=== PATIENT | female | born 1965 | race African-American/Black ===

== ENCOUNTER → 2016-09-04 | Outpatient (CLI) | payer MEDICARE, OTHER ==
[~2016-09-04] MED LIST: ASPIRIN 325MG325 MG PO; BYDUREON2 MG SQ; CELEXA40 MG PO; CLARITIN10 M2 PO; DESYREL 50 MG T50 MG PO; ELAVIL 10 MG TA10 MG PO; GLUCOTROL5 MG PO; K-DUR TAB 10 M10 MEQ PO; LASIX40 MG PO; LEVEMIR100 UNIT/1 SQ; LISINOPRIL40 MG PO; LOPRESSOR100 MG PO; NEURONTIN600 MG PO; NEURONTIN800 MG PO; NORCO 7.5-3251 EACH PO; NORVASC 5 MG TAB5 MG PO; NOVOLOG 10100 UNITS1 SQ; ROBAXIN500 MG PO; SYNTHROID50 MCG PO; VITAMIN B-121000 MC3 PO; ZANTAC150 MG PO; ZOCOR40 MG PO; ZYRTEC10 MG PO
== END ==
LOC: KOH-I 15:00
DX: G95.9 Disease of spinal cord, unspecified (principal); M48.02 Spinal stenosis, cervical region; M25.78 Osteophyte, vertebrae; Z98.1 Arthrodesis status
CPT/HCPCS: 72125

== ENCOUNTER → 2021-01-02 | Outpatient (CLI) | payer MEDICARE, OTHER ==
[~2021-01-02] MED LIST changes: +ALBUTEROL2.5 MG/3 M INH; +ALLOPURINOL100 MG PO; +AMITRIPTYLINE H10 MG PO; +AMLODIPINE BESY10 MG PO; +ANORO ELLIPTA1 EACH INH; +ASPIRIN EC81 MG PO; +ATORVASTATIN CA20 MG PO; +BRILINTA 90 MG90 MG PO; +BUPROPION HCL100 M1 PO; +BYDUREON BCISE; +BYDUREON P2 MG/0.65 SQ; +DULOXETINE HCL30 MG PO; +DULOXETINE HCL60 MG PO; +FLONASE 0.05% N16 GM; +FUROSEMIDE20 MG PO; +GABAPENTIN600 MG PO; +HYDROCHLOROTHIA25 MG PO; +ISOSORBIDE PO; +LEVOCETIRIZINE D5 MG PO; +LEVOTHYROXINE50 MCG PO; +LORTAB 5-325 M1 EACH PO; +METFORMIN HCL500 MG PO; +METOPROLOL SUC100 MG PO; +MIRALAX17 GM PO; +NITROSTAT0.4 MG SL; +NOVOLOG100 UNIT/1 SQ; +QUETIAPINE FUMA25 MG PO; +SIMVASTATIN20 MG PO; +TIZANIDINE HCL2 MG PO; +TOPROL XL100 MG PO; +TRAZODONE HCL50 MG PO; +VENLAFAXINE H37.5 M1 PO; +VENTOLIN HFA 66.7 GM INH; +[UNRECOGNIZED DRUG - OTHER]
== END ==
LOC: KOH-I 13:00
DX: Z12.2 Encounter for screening for malignant neoplasm of respiratory organs (principal); R91.1 Solitary pulmonary nodule; F17.210 Nicotine dependence, cigarettes, uncomplicated
CPT/HCPCS: 71271

== ENCOUNTER → 2021-01-10 | Day surgery (SDC) | payer MEDICARE, OTHER | END | disposition home or self-care (01) | LOC: OR 06:15 | DX: Z12.11 Encounter for screening for malignant neoplasm of colon (principal); I50.9 Heart failure, unspecified; J44.9 Chronic obstructive pulmonary disease, unspecified; I11.0 Hypertensive heart disease with heart failure; E03.9 Hypothyroidism, unspecified; K52.9 Noninfective gastroenteritis and colitis, unspecified; F17.210 Nicotine dependence, cigarettes, uncomplicated; F32.9 Major depressive disorder, single episode, unspecified; E11.42 Type 2 diabetes mellitus with diabetic polyneuropathy; E78.2 Mixed hyperlipidemia; Z95.1 Presence of aortocoronary bypass graft; Z88.0 Allergy status to penicillin; Z20.822 Contact with and (suspected) exposure to COVID-19 | CPT/HCPCS: 82962; J2704; J7030; U0002 ==

== ENCOUNTER 2021-06-02 04:43 | Inpatient (IN) | payer MEDICARE, OTHER ==
[~2021-06-02] VITALS: Ht 172.7 cm; Wt 135.3 kg
[~2021-06-02 04:43] MED LIST changes: -BYDUREON P2 MG/0.65 SQ; -GABAPENTIN600 MG PO; -ISOSORBIDE PO; -LORTAB 5-325 M1 EACH PO; -METFORMIN HCL500 MG PO; -NOVOLOG100 UNIT/1 SQ; -QUETIAPINE FUMA25 MG PO
[2021-06-02 05:16] LABS: HEMOGLOBIN 12.6 gm/dl (12.3-15.3); RED BLOOD COUNT 3.72 M/UL (4.00-5.10); WHITE BLOOD COUNT 19.3 K/UL (4.5-11.0)
[2021-06-02 05:44] LABS: BUN/CREATININE RATIO 15 (0-10)
[2021-06-02] MEDS ORDERED: QUETIAPINE FUMA25 MG PO (07:09)
[2021-06-02] MEDS ORDERED: ISOSORBIDE MONO30 MG PO (09:37)
[2021-06-02] MEDS ORDERED: BYDUREON BCISE PO (09:39)
[2021-06-02] MEDS ORDERED: GABAPENTIN800 MG PO (09:41)
[2021-06-02] MEDS ORDERED: HYDROCODON-ACE1 EAC2 PO (09:42)
[2021-06-02] MEDS ORDERED: METFORMIN HCL500 MG PO (09:46)
[2021-06-02] MEDS ORDERED: NOVOLOG FL100 UNIT/1 INJ ×2 (09:49→11:22)
[2021-06-02] MEDS ORDERED: ATORVASTATIN CA80 MG PO (11:18)
[2021-06-02] MEDS ORDERED: TRESIBA FL100 UNIT/1 INJ (11:25)
[2021-06-02] MEDS ORDERED: PRAZOSIN HCL2 MG PO (11:27)
[2021-06-02] MEDS ORDERED: ALLOPURINOL300 MG PO (11:30)
[2021-06-02] MEDS ORDERED: PLAVIX 75 MG TA75 MG PO (11:31)
[2021-06-02] MEDS ORDERED: CYCLOBENZAPRINE10 MG PO (11:31)
[2021-06-02] MEDS ORDERED: JARDIANCE10 MG PO (11:32)
[2021-06-03 03:14] LABS: HEMOGLOBIN 12.5 gm/dl (12.3-15.3); RED BLOOD COUNT 3.78 M/UL (4.00-5.10)
[2021-06-03 03:46] LABS: BUN/CREATININE RATIO 21 (0-10)
[2021-06-04 08:00] LABS: HEMOGLOBIN 12.4 gm/dl (12.3-15.3); RED BLOOD COUNT 3.8 M/UL (4.00-5.10); WHITE BLOOD COUNT 14.9 K/UL (4.5-11.0)
[2021-06-04 08:22] LABS: BUN/CREATININE RATIO 27 (0-10)
[2021-06-05 08:33] LABS: HEMOGLOBIN 12.9 gm/dl (12.3-15.3); RED BLOOD COUNT 3.95 M/UL (4.00-5.10); WHITE BLOOD COUNT 14.5 K/UL (4.5-11.0)
[2021-06-05 09:07] LABS: BUN/CREATININE RATIO 34 (0-10)
[2021-06-05] MEDS ORDERED: LEVOFLOXACIN750 MG PO (13:58)
--- NOTE | 2021-06-05 14:14 | NUR ---
1400: AMBULATED PATIENT IN HALLWAY WITHOUT OXYGEN, NOTED SPO2 DECREASED TO 86%. RETURNED TO ROOM AND PLACED BACK ON 2 LPM N/C. SPO2 INCREASED TO 97%.
--- NOTE | 2021-06-05 15:18 | NUR ---
1320: PATIENT AWAITING ARRIVAL OF HOME OXYGEN TO BE DELIVERED FOR DISCHARGE HOME.
== END 2021-06-05 16:35 | disposition home or self-care (01) | DRG 871 ==
LOC: ER1 04:43 → CDU 08:21 → MED SURG 4 16:32
PROVIDERS: Physician Assistant; Student in an Organized Health Care Education/Training Program; ADMIT Internal Medicine
PROC: 3E0333Z Introduction of Anti-inflammatory into Peripheral Vein, Percutaneous Approach (ICD-10-PCS; principal; 2021-06-02)
DX: A41.9 Sepsis, unspecified organism (principal); J96.01 Acute respiratory failure with hypoxia; J18.9 Pneumonia, unspecified organism; Z20.822 Contact with and (suspected) exposure to COVID-19; R65.20 Severe sepsis without septic shock; J44.0 Chronic obstructive pulmonary disease with (acute) lower respiratory infection; Z68.41 Body mass index [BMI] 40.0-44.9, adult; J44.1 Chronic obstructive pulmonary disease with (acute) exacerbation; I16.0 Hypertensive urgency; E11.9 Type 2 diabetes mellitus without complications; E66.01 Morbid (severe) obesity due to excess calories; E78.5 Hyperlipidemia, unspecified; E03.9 Hypothyroidism, unspecified; F17.210 Nicotine dependence, cigarettes, uncomplicated; I25.10 Atherosclerotic heart disease of native coronary artery without angina pectoris; Z95.1 Presence of aortocoronary bypass graft; Z79.01 Long term (current) use of anticoagulants; Z79.82 Long term (current) use of aspirin; Z95.5 Presence of coronary angioplasty implant and graft; Z90.49 Acquired absence of other specified parts of digestive tract; Z88.0 Allergy status to penicillin; Z88.8 Allergy status to other drugs, medicaments and biological substances; Z90.710 Acquired absence of both cervix and uterus; Z82.49 Family history of ischemic heart disease and other diseases of the circulatory system; Z83.3 Family history of diabetes mellitus; Z79.4 Long term (current) use of insulin
CPT/HCPCS: 36415; 36600; 71045; 80048; 80053; 82550; 82553; 82803; 82962; 83036; 83605; 83735; 83880; 84484; 85025; 85379; 87040; 93005; 94640; 94664; 94760; 96374; 99285; J0456; J0696; J1100; J1650; J1940; J2920; J3475; J7030; Q9967; U0002

== ENCOUNTER → 2021-09-04 | Outpatient (CLI) | payer MEDICARE, OTHER ==
[~2021-09-04] MED LIST changes: +ALLOPURINOL300 MG PO; +ATORVASTATIN CA80 MG PO; +BYDUREON BCISE PO; +CYCLOBENZAPRINE10 MG PO; +GABAPENTIN800 MG PO; +HYDROCODON-ACE1 EAC2 PO; +ISOSORBIDE MONO30 MG PO; +JARDIANCE10 MG PO; +LEVOFLOXACIN750 MG PO; +METFORMIN HCL500 MG PO; +NOVOLOG FL100 UNIT/1 INJ; +PLAVIX 75 MG TA75 MG PO; +PRAZOSIN HCL2 MG PO; +QUETIAPINE FUMA25 MG PO; +TRESIBA FL100 UNIT/1 INJ
== END ==
LOC: HEART 5 11:11
DX: J44.9 Chronic obstructive pulmonary disease, unspecified (principal); R94.2 Abnormal results of pulmonary function studies
CPT/HCPCS: 94060; 94729

== ENCOUNTER → 2021-09-19 | Outpatient (CLI) | payer MEDICARE, OTHER ==
[2021-09-19 08:39] LABS: HEMOGLOBIN 11.8 gm/dl (12.3-15.3); RED BLOOD COUNT 3.82 M/UL (4.00-5.10); WHITE BLOOD COUNT 11.2 K/UL (4.5-11.0)
== END ==
LOC: CT 08:00
PROVIDERS: Family Medicine
DX: R91.8 Other nonspecific abnormal finding of lung field (principal); E03.9 Hypothyroidism, unspecified; E78.2 Mixed hyperlipidemia; E53.8 Deficiency of other specified B group vitamins; I10 Essential (primary) hypertension
CPT/HCPCS: 36415; 71250; 80053; 80061; 82607; 83735; 84439; 84443; 85027

== ENCOUNTER 2021-10-03 21:04 | Emergency (ER) | payer MEDICARE, OTHER ==
[~2021-10-03 21:04] MED LIST changes: -HYDROCODON-ACE1 EAC2 PO; +HYDROCODON-ACE1 EAC4 PO; -METFORMIN HCL500 MG PO; -QUETIAPINE FUMA25 MG PO; +QUETIAPINE FUMA50 MG PO
[2021-10-05] MEDS ORDERED: METFORMIN HCL500 M2 PO (09:46)
[2021-10-05] MEDS ORDERED: HYDROCHLOROTHIA25 MG PO (10:34)
[2021-10-05] MEDS ORDERED: ANORO ELLIPTA1 EACH INH (10:37)
[2021-10-05] MEDS ORDERED: ALBUTEROL2.5 MG/3 M INH (10:38)
[2021-10-05] MEDS ORDERED: CYCLOBENZAPRINE10 MG PO (10:43)
== END 2021-10-04 00:17 | disposition left against medical advice (07) ==
LOC: ER1 21:04
DX: Z53.21 Procedure and treatment not carried out due to patient leaving prior to being seen by health care provider (principal)

== ENCOUNTER 2021-10-05 04:53 | Inpatient (IN) | payer MEDICARE, OTHER ==
[~2021-10-05] VITALS: Ht 175.3 cm; Wt 136.1 kg
[2021-10-05 06:28] LABS: RED BLOOD COUNT 4.25 M/UL (4.00-5.10); WHITE BLOOD COUNT 22.4 K/UL (4.5-11.0)
[2021-10-05 06:59] LABS: BUN/CREATININE RATIO 43 (0-10)
[2021-10-05] MEDS ORDERED: METFORMIN HCL500 M2 PO (09:46)
[2021-10-05] MEDS ORDERED: HYDROCHLOROTHIA25 MG PO (10:34)
[2021-10-05] MEDS ORDERED: ANORO ELLIPTA1 EACH INH (10:37)
[2021-10-05] MEDS ORDERED: ALBUTEROL2.5 MG/3 M INH (10:38)
[2021-10-05] MEDS ORDERED: CYCLOBENZAPRINE10 MG PO (10:43)
[2021-10-05 16:06] LABS: HEMOGLOBIN 11.5 gm/dl (12.3-15.3)
[2021-10-05 16:14] LABS: RED BLOOD COUNT 3.82 M/UL (4.00-5.10)
[2021-10-05 16:48] LABS: BUN/CREATININE RATIO 54 (0-10)
[2021-10-06 05:40] LABS: HEMOGLOBIN 11.4 gm/dl (12.3-15.3); RED BLOOD COUNT 3.75 M/UL (4.00-5.10); WHITE BLOOD COUNT 25.9 K/UL (4.5-11.0)
--- NOTE | 2021-10-06 17:10 | NUR ---
DRESSING CHANGED TO LEFT AXILI PER MD ORDER
[2021-10-07 04:20] LABS: WHITE BLOOD COUNT 35.2 K/UL (4.5-11.0)
[2021-10-07 04:21] LABS: RED BLOOD COUNT 3.34 M/UL (4.00-5.10)
[2021-10-08 05:04] LABS: HEMOGLOBIN 10.2 gm/dl (12.3-15.3); RED BLOOD COUNT 3.39 M/UL (4.00-5.10)
[2021-10-08 05:11] LABS: WHITE BLOOD COUNT 33.5 K/UL (4.5-11.0)
[2021-10-09 04:58] LABS: HEMOGLOBIN 8.9 gm/dl (12.3-15.3)
[2021-10-09 05:04] LABS: RED BLOOD COUNT 2.96 M/UL (4.00-5.10); WHITE BLOOD COUNT 33.3 K/UL (4.5-11.0)
[2021-10-10 07:45] LABS: HEMOGLOBIN 8.5 gm/dl (12.3-15.3); RED BLOOD COUNT 2.94 M/UL (4.00-5.10)
[2021-10-10 07:51] LABS: WHITE BLOOD COUNT 32.5 K/UL (4.5-11.0)
[2021-10-10 19:30] LABS: HEMOGLOBIN 7.1 gm/dl (12.3-15.3)
[2021-10-11 04:35] LABS: HEMOGLOBIN 6.5 gm/dl (12.3-15.3); RED BLOOD COUNT 2.17 M/UL (4.00-5.10); WHITE BLOOD COUNT 30.5 K/UL (4.5-11.0)
[2021-10-11 11:55] LABS: HEMOGLOBIN 7.2 gm/dl (12.3-15.3); RED BLOOD COUNT 2.3 M/UL (4.00-5.10); WHITE BLOOD COUNT 21.7 K/UL (4.5-11.0)
[2021-10-12 05:02] LABS: WHITE BLOOD COUNT 24.1 K/UL (4.5-11.0)
[2021-10-12 05:35] LABS: RED BLOOD COUNT 2.05 M/UL (4.00-5.10)
[2021-10-12 05:37] LABS: HEMOGLOBIN 6.2 gm/dl (12.3-15.3)
[2021-10-12 16:14] LABS: HEMOGLOBIN 8.2 gm/dl (12.3-15.3); RED BLOOD COUNT 2.7 M/UL (4.00-5.10)
[2021-10-13 06:36] LABS: HEMOGLOBIN 8.7 gm/dl (12.3-15.3); RED BLOOD COUNT 2.84 M/UL (4.00-5.10)
[2021-10-13 06:45] LABS: WHITE BLOOD COUNT 32.8 K/UL (4.5-11.0)
[2021-10-14 05:23] LABS: HEMOGLOBIN 8.5 gm/dl (12.3-15.3); RED BLOOD COUNT 2.78 M/UL (4.00-5.10); WHITE BLOOD COUNT 27.8 K/UL (4.5-11.0)
[2021-10-15 05:16] LABS: HEMOGLOBIN 8.7 gm/dl (12.3-15.3); RED BLOOD COUNT 2.88 M/UL (4.00-5.10); WHITE BLOOD COUNT 26.3 K/UL (4.5-11.0)
[2021-10-16 05:19] LABS: HEMOGLOBIN 8.4 gm/dl (12.3-15.3); RED BLOOD COUNT 2.76 M/UL (4.00-5.10); WHITE BLOOD COUNT 22.2 K/UL (4.5-11.0)
[2021-10-17 05:35] LABS: HEMOGLOBIN 7.7 gm/dl (12.3-15.3); RED BLOOD COUNT 2.56 M/UL (4.00-5.10)
[2021-10-18 05:35] LABS: HEMOGLOBIN 7.4 gm/dl (12.3-15.3); RED BLOOD COUNT 2.51 M/UL (4.00-5.10); WHITE BLOOD COUNT 16.4 K/UL (4.5-11.0)
--- NOTE | 2021-10-18 18:45 | NUR ---
WOUND VAC CHANGED PER DR. BROUSSARD ORDERS WITHOUT COMPLICATIONS. PATIENT TOLERATED WELL. WILL MONITOR CLOSELY.
[2021-10-19 04:04] LABS: HEMOGLOBIN 7.1 gm/dl (12.3-15.3); RED BLOOD COUNT 2.33 M/UL (4.00-5.10); WHITE BLOOD COUNT 12.8 K/UL (4.5-11.0)
[2021-10-19] MEDS ORDERED: SENNA LAX8.6 MG PO (13:56)
[2021-10-19] MEDS ORDERED: MELATONIN3 MG PO (13:56)
[2021-10-19] MEDS ORDERED: HUMALOG 10100 UNITS/ SC (13:56)
[2021-10-19] MEDS ORDERED: SANTYL OINT 3030 GM TOP (13:56)
[2021-10-19] MEDS ORDERED: LANTUS INS100 UTS/M1 SC (13:56)
[2021-10-19] MEDS ORDERED: FAMOTIDINE20 MG PO (13:56)
[2021-10-19] MEDS ORDERED: IPRAT-ALBUT 0.5-3 ML NEB (13:56)
[2021-10-19] MEDS ORDERED: CALCIUM ACETAT667 M1 PO (13:56)
[2021-10-19] MEDS ORDERED: BUDESONIDE0.25 MG/2 NEB (13:56)
[2021-10-19 19:13] LABS: HEMOGLOBIN 7.8 gm/dl (12.3-15.3)
== END 2021-10-20 01:12 | DRG 853 ==
LOC: ER1 04:53 → CCU 06:50 → CDU 06:50 → CCU 16:14
PROVIDERS: Family Medicine; Internal Medicine; Internal Medicine Critical Care Medicine; Internal Medicine Nephrology; Internal Medicine Pulmonary Disease; Nurse Practitioner Pediatrics; Surgery; ADMIT Internal Medicine
PROC: 3E03329 Introduction of Other Anti-infective into Peripheral Vein, Percutaneous Approach (ICD-10-PCS; 2021-10-05)
PROC: 0JBF0ZZ Excision of Left Upper Arm Subcutaneous Tissue and Fascia, Open Approach (ICD-10-PCS; 2021-10-05)
PROC: 8E0ZXY6 Isolation (ICD-10-PCS; 2021-10-05)
PROC: 3E0333Z Introduction of Anti-inflammatory into Peripheral Vein, Percutaneous Approach (ICD-10-PCS; 2021-10-05)
PROC: B24BZZZ Ultrasonography of Heart with Aorta (ICD-10-PCS; 2021-10-08)
PROC: 3E043XZ Introduction of Vasopressor into Central Vein, Percutaneous Approach (ICD-10-PCS; 2021-10-08)
PROC: 3E043XZ Introduction of Vasopressor into Central Vein, Percutaneous Approach (ICD-10-PCS; 2021-10-08)
PROC: 0DH63UZ Insertion of Feeding Device into Stomach, Percutaneous Approach (ICD-10-PCS; 2021-10-09)
PROC: 3E0G76Z Introduction of Nutritional Substance into Upper GI, Via Natural or Artificial Opening (ICD-10-PCS; 2021-10-09)
PROC: 0JDF0ZZ Extraction of Left Upper Arm Subcutaneous Tissue and Fascia, Open Approach (ICD-10-PCS; 2021-10-10)
PROC: 30233N1 Transfusion of Nonautologous Red Blood Cells into Peripheral Vein, Percutaneous Approach (ICD-10-PCS; principal; 2021-10-10 14:31)
PROC: 5A09357 Assistance with Respiratory Ventilation, Less than 24 Consecutive Hours, Continuous Positive Airway Pressure (ICD-10-PCS; 2021-10-13)
PROC: 5A09357 Assistance with Respiratory Ventilation, Less than 24 Consecutive Hours, Continuous Positive Airway Pressure (ICD-10-PCS; 2021-10-14)
PROC: 5A09357 Assistance with Respiratory Ventilation, Less than 24 Consecutive Hours, Continuous Positive Airway Pressure (ICD-10-PCS; 2021-10-16)
PROC: 5A09357 Assistance with Respiratory Ventilation, Less than 24 Consecutive Hours, Continuous Positive Airway Pressure (ICD-10-PCS; 2021-10-17)
PROC: 5A09357 Assistance with Respiratory Ventilation, Less than 24 Consecutive Hours, Continuous Positive Airway Pressure (ICD-10-PCS; 2021-10-19)
DX: A41.9 Sepsis, unspecified organism (principal); M72.6 Necrotizing fasciitis; U07.1 COVID-19; I50.33 Acute on chronic diastolic (congestive) heart failure; R65.21 Severe sepsis with septic shock; N17.0 Acute kidney failure with tubular necrosis; G92.8 Other toxic encephalopathy; J96.21 Acute and chronic respiratory failure with hypoxia; M62.82 Rhabdomyolysis; E87.1 Hypo-osmolality and hyponatremia; I13.0 Hypertensive heart and chronic kidney disease with heart failure and stage 1 through stage 4 chronic kidney disease, or unspecified chronic kidney disease; E87.2 Acidosis; L03.114 Cellulitis of left upper limb; E87.0 Hyperosmolality and hypernatremia; Z68.41 Body mass index [BMI] 40.0-44.9, adult; I25.10 Atherosclerotic heart disease of native coronary artery without angina pectoris; Z96.651 Presence of right artificial knee joint; Z96.661 Presence of right artificial ankle joint; J44.9 Chronic obstructive pulmonary disease, unspecified; R74.01 Elevation of levels of liver transaminase levels; E11.65 Type 2 diabetes mellitus with hyperglycemia; F17.200 Nicotine dependence, unspecified, uncomplicated; E03.9 Hypothyroidism, unspecified; E87.5 Hyperkalemia; E78.5 Hyperlipidemia, unspecified; E66.01 Morbid (severe) obesity due to excess calories; Z90.49 Acquired absence of other specified parts of digestive tract; Z90.710 Acquired absence of both cervix and uterus; Z95.1 Presence of aortocoronary bypass graft; Z98.890 Other specified postprocedural states; Z88.0 Allergy status to penicillin; Z88.8 Allergy status to other drugs, medicaments and biological substances; Z83.3 Family history of diabetes mellitus; Z82.49 Family history of ischemic heart disease and other diseases of the circulatory system; Z79.4 Long term (current) use of insulin
CPT/HCPCS: ECHO; 36415; 36430; 36600; 71045; 71260; 80048; 80053; 80202; 81001; 82436; 82550; 82553; 82570; 82728; 82803; 82962; 83605; 83735; 83880; 84100; 84133; 84156; 84295; 84300; 84484; 85007; 85014; 85018; 85025; 85027; 85384; 85610; 86140; 86850; 86900; 86901; 86920; 87040; 87070; 87081; 87205; 89050; 92526; 92610; 93005; 93306; 94640; 94660; 94664; 94760; 94762; 96374; 96375; 96376; 97110-GP-CQ; 97161; 97530; 97530-GP-CQ; 99285; C1751; C9113; J0360; J1100; J1650; J1940; J2001; J2185; J2250; J2270; J2370; J2405; J2704; J2795; J3010; J3370; J7030; J7040; J7050; J7070; J7120; P9016; P9035; P9047; Q9967; U0002

== ENCOUNTER 2022-01-11 17:53 | Emergency (ER) | payer MEDICARE, OTHER ==
[~2022-01-11 17:53] MED LIST changes: +BUDESONIDE0.25 MG/2 NEB; +CALCIUM ACETAT667 M1 PO; +FAMOTIDINE20 MG PO; +HUMALOG 10100 UNITS/ SC; +IPRAT-ALBUT 0.5-3 ML NEB; +LANTUS INS100 UTS/M1 SC; +MELATONIN3 MG PO; +METFORMIN HCL500 M2 PO; +SANTYL OINT 3030 GM TOP; +SENNA LAX8.6 MG PO
[2022-01-11 19:16] LABS: HEMOGLOBIN 9.8 gm/dl (12.3-15.3); RED BLOOD COUNT 3.23 M/UL (4.00-5.10); WHITE BLOOD COUNT 10.3 K/UL (4.5-11.0)
[2022-01-11] MEDS ORDERED: K-TAB ER10 MEQ PO (23:37)
== END 2022-01-11 23:53 | disposition home or self-care (01) ==
LOC: ER1 17:53
PROVIDERS: Physician Assistant
DX: E87.6 Hypokalemia (principal); R41.0 Disorientation, unspecified; I11.9 Hypertensive heart disease without heart failure; E11.9 Type 2 diabetes mellitus without complications; J44.9 Chronic obstructive pulmonary disease, unspecified; F17.210 Nicotine dependence, cigarettes, uncomplicated; Z95.1 Presence of aortocoronary bypass graft; Z88.0 Allergy status to penicillin; W19.XXXA Unspecified fall, initial encounter
CPT/HCPCS: 70450; 71045; 72220; 80053; 81001; 82550; 82553; 83605; 84484; 85025; 87086; 96360; 99285

== ENCOUNTER 2022-01-17 15:13 | Inpatient (IN) | payer MEDICARE, OTHER ==
[~2022-01-17] VITALS: Ht 170.2 cm; Wt 127.0 kg
[~2022-01-17 15:13] MED LIST changes: +K-TAB ER10 MEQ PO; -LEVOTHYROXINE50 MCG PO; +LEVOTHYROXINE88 MCG PO; -TRESIBA FL100 UNIT/1 INJ; +TRESIBA FLEXTOUCH SQ
[2022-01-17 16:50] LABS: RED BLOOD COUNT 4.13 M/UL (4.00-5.10); WHITE BLOOD COUNT 12.8 K/UL (4.5-11.0)
[2022-01-17 16:51] LABS: HEMOGLOBIN 12.6 gm/dl (12.3-15.3)
[2022-01-17 17:16] LABS: BUN/CREATININE RATIO 10 (0-10)
[2022-01-18 03:13] LABS: HEMOGLOBIN 10.8 gm/dl (12.3-15.3); WHITE BLOOD COUNT 11.3 K/UL (4.5-11.0)
[2022-01-18 03:25] LABS: RED BLOOD COUNT 3.58 M/UL (4.00-5.10)
[2022-01-18 03:29] LABS: BUN/CREATININE RATIO 12 (0-10)
[2022-01-18] MEDS ORDERED: CALCIUM ACETAT667 M1 PO (10:24)
[2022-01-18] MEDS ORDERED: PROAIR HFA8.5 GM INH (10:26)
[2022-01-18] MEDS ORDERED: POTASSIUM CHLO10 ME1 PO (10:26)
[2022-01-18] MEDS ORDERED: BYDUREON BCISE INJ (10:26)
[2022-01-18] MEDS ORDERED: LIOTHYRONINE SO5 MCG PO (10:27)
[2022-01-18] MEDS ORDERED: LINZESS145 MCG PO (10:27)
[2022-01-18] MEDS ORDERED: TORSEMIDE20 MG PO (10:27)
[2022-01-18] MEDS ORDERED: PANTOPRAZOLE SO20 MG PO (10:31)
[2022-01-19 03:09] LABS: HEMOGLOBIN 10.4 gm/dl (12.3-15.3); RED BLOOD COUNT 3.41 M/UL (4.00-5.10); WHITE BLOOD COUNT 9.5 K/UL (4.5-11.0)
[2022-01-19 03:46] LABS: BUN/CREATININE RATIO 8 (0-10)
[2022-01-19 11:38] LABS: ADENOVIRUS F 40/41 Not Detected (Negative); ASTROVIRUS Not Detected (Negative); CAMPYLOBACTER Not Detected (Negative); CRYPTOSPORIDIUM Not Detected (Negative); E.COLI 0157 Not Detected (Negative); ENTAMOEBA HISTOLYTICA Not Detected (Negative); ENTEROAGGREGATIVE E.COLI (EAEC Not Detected (Negative); ENTEROTOXIGENIC E.COLI (ETEC) Not Detected (Negative); GIARDIA LAMBLIA Not Detected (Negative); NOROVIRUS GI/GII Not Detected (Negative); PLESIOMONAS SHIGELLOIDES Not Detected (Negative); ROTOVIRUS A Not Detected (Negative); SALMONELLA Not Detected (Negative); SAPOVIRUS Not Detected (Negative); SHIG/ENTEROINVAS.ECOLI (EIEC) Not Detected (Negative); SHIGA-LIK TOX.PRO.E.COLI (STEC Not Detected (Negative); VIBRIO Not Detected (Negative); VIBRIO CHOLERAE Not Detected (Negative); YERSINIA ENTEROCOLITICA Not Detected (Negative)
[2022-01-19 14:46] LABS: ENTEROPATHOGENIC E.COLI (EPEC) DETECTED (Negative)
[2022-01-20 01:49] LABS: HEMOGLOBIN 10.9 gm/dl (12.3-15.3); RED BLOOD COUNT 3.59 M/UL (4.00-5.10); WHITE BLOOD COUNT 10.9 K/UL (4.5-11.0)
[2022-01-20 01:56] LABS: BUN/CREATININE RATIO 7 (0-10)
[2022-01-20] MEDS ORDERED: VANCOCIN 250 M250 MG PO (11:15)
[2022-01-21 01:51] LABS: HEMOGLOBIN 10.4 gm/dl (12.3-15.3); RED BLOOD COUNT 3.42 M/UL (4.00-5.10); WHITE BLOOD COUNT 10.7 K/UL (4.5-11.0)
[2022-01-21 02:15] LABS: BUN/CREATININE RATIO 5 (0-10)
[2022-01-21] MEDS ORDERED: VANCOMYCIN HCL250 MG PO (13:01)
[2022-01-21] MEDS ORDERED: METRONIDAZOLE500 MG PO (13:28)
[2022-01-21] MEDS ORDERED: LEVOFLOXACIN500 MG PO (13:28)
[2022-01-21] MEDS ORDERED: K-TAB ER20 MEQ PO ×2 (13:52→13:56)
[2022-01-21] MEDS ORDERED: MAGNESIUM OXID400 M1 PO (13:52)
[2022-01-21] MEDS ORDERED: HYDRALAZINE HCL25 MG PO (13:57)
[2022-01-21] MEDS ORDERED: HYDROCODON-ACE1 EAC4 PO (14:01)
--- NOTE | 2022-01-21 17:37 | NUR ---
1737- ATTEMTPED MULTIPLE TIMES TO NOTIFY [facility] PATIENT WAS BEING DISCHARGED TODAY. LEFT MESSAGE.
== END 2022-01-21 17:27 | disposition home health service (06) | DRG 872 ==
LOC: ER1 15:13 → CDU 20:49 → M/S 20:49
PROVIDERS: Internal Medicine; Physician Assistant Medical; ADMIT Internal Medicine
DX: A41.89 Other specified sepsis (principal); I50.32 Chronic diastolic (congestive) heart failure; A04.72 Enterocolitis due to Clostridium difficile, not specified as recurrent; Z68.41 Body mass index [BMI] 40.0-44.9, adult; Z20.822 Contact with and (suspected) exposure to COVID-19; E87.6 Hypokalemia; E11.9 Type 2 diabetes mellitus without complications; I11.0 Hypertensive heart disease with heart failure; E66.9 Obesity, unspecified; J44.9 Chronic obstructive pulmonary disease, unspecified; E78.5 Hyperlipidemia, unspecified; E03.9 Hypothyroidism, unspecified; E83.42 Hypomagnesemia; I25.10 Atherosclerotic heart disease of native coronary artery without angina pectoris; Z95.5 Presence of coronary angioplasty implant and graft; Z79.01 Long term (current) use of anticoagulants; Z79.82 Long term (current) use of aspirin; Z88.0 Allergy status to penicillin; Z83.3 Family history of diabetes mellitus; Z82.49 Family history of ischemic heart disease and other diseases of the circulatory system
CPT/HCPCS: 36415; 71045; 80048; 80053; 82962; 83036; 83605; 83735; 84100; 84439; 84443; 85025; 85027; 86140; 87040; 87324; 87449; 87507; 93005; 94640; 94664; 94760; 96374; 96375; 96376; 97162; 99285; J1335; J1650; J1956; J2270; J2405; Q9967